=== PATIENT | male | born 1960 | race Caucasian/White ===

== ENCOUNTER → 2021-04-10 | Outpatient (CLI) | payer OTHER ==
[~2021-04-10] MED LIST: ALLEGRA ALLERG180 MG PO; AMANTADINE100 M1 PO; CARBIDOPA-LEVO1 EAC5 PO; CITRATE OF MAG296 ML PO; EMSAM; FLEXERIL PO; MOBIC7.5 MG PO; NABUMETONE 750750 M1 PO; NAPROSYN500 MG PO; NORCO 5-325 TA1 EACH PO; NORCO 7.5-3251 EACH PO; PERCOCET 5-3251 EACH PO; RELAFEN750 MG PO; REQUIP XL12 MG; ZOFRAN ODT4 MG PO; [UNRECOGNIZED DRUG - OTHER]
[2021-04-10 11:40] LABS: ALBUMIN 4.2 g/dL (3.4-5.0); CALCIUM 9.5 mg/dL (8.5-10.1); CREATININE 1.1 mg/dL (0.7-1.3); POTASSIUM 4.6 mmol/L (3.5-5.1)
[2021-04-10 11:44] LABS: HEMATOCRIT 47.7 % (42.0-52.0); HEMOGLOBIN 16.3 gm/dL (14.0-18.0); MCH 30.3 pg (26.0-34.0); MCHC 34.1 g/dL (28.0-37.0); MCV 88.9 fL (80.0-100.0); RBC 5.36 mil/uL (4.50-6.00); RDW 13.3 % (10.5-14.5)
[2021-04-10 11:56] LABS: INR 0.98; PROTIME 10.7 Seconds (10.5-12.1)
[2021-04-10 12:27] LABS: URINE BILIRUBIN NEGATIVE (Negative); URINE BLOOD NEGATIVE (Negative); URINE CLARITY CLEAR; URINE COLOR YELLOW; URINE GLUCOSE-RANDOM* NEGATIVE (Negative); URINE KETONES NEGATIVE (Negative); URINE LEUKOCYTES-REFLEX NEGATIVE (Negative); URINE NITRITE-REFLEX NEGATIVE (Negative); URINE PROTEIN (DIPSTICK) NEGATIVE (Negative); URINE SPECIFIC GRAVITY >= 1.030 (1.005-1.035); URINE UROBILINOGEN 0.2 E.U./dl (0.2-1.0)
== END ==
LOC: PAC 10:36
PROVIDERS: ATTEND Orthopaedic Surgery
DX: Z01.812 Encounter for preprocedural laboratory examination (principal); M17.11 Unilateral primary osteoarthritis, right knee; M22.41 Chondromalacia patellae, right knee; M25.569 Pain in unspecified knee; Z20.822 Contact with and (suspected) exposure to COVID-19

== ENCOUNTER 2021-04-13 06:13 | Day surgery (SDC) | payer OTHER ==
[~2021-04-13] VITALS: Ht 180.3 cm; Wt 111.1 kg
[2021-04-13 07:39] VITALS: BP 149/80
[2021-04-13 12:16] VITALS: BP 160/80
--- NOTE | 2021-04-13 16:23 | NUR ---
ASSUMED PT CARE AT 1220 FROM PACU. PT IS ALERT & ORIENTED X4. PT HAS IV SITE ON R HAND. PT USES URINAL. PT HAS 2L NC O2. PT HAS [employer] THIGH HIGH, HEMOVAC, POLAR PACK, GABY DRESSING AND SCD. PT C/O OF PAIN AND GIVEN PAIN MEDICATION PER PT REQUEST. PT TOLERATED DIET AND MEDICATION WELL. FINISHED ADMISSION. PT AT THE BEDSIDE. WILL CONTINUE TO MONITOR PT. FOLLOW POC.
[2021-04-13 16:39] VITALS: BP 151/96
--- NOTE | 2021-04-13 23:57 | NUR ---
ASSESSMENT COMPLETED. PT IS USING A URINAL-VOIDING ADEQUATELY. RATING PAIN AROUND 4/10-RELIEVED BY NORCO. AGBY AND POLAR SHANNA IN PLACE TO RIGHT KNEE. IN FIRST FOUR HOURS, HEMOVAC HAD ABOUT 5CC OF OUTPUT. GOOD CSM TO RIGHT FOOT. AFEBRILE. ON 02/2L/NC FOR COMFORT. DENIES NAUSEA AND VOMITING. NO OTHER CONCERNS.CALL LIGHT WITHIN REACH.
[2021-04-14 03:47] VITALS: BP 148/84
[2021-04-14 06:00] LABS: HEMATOCRIT 40.2 % (42.0-52.0); HEMOGLOBIN 13.6 gm/dL (14.0-18.0); MCH 30.1 pg (26.0-34.0); MCHC 33.7 g/dL (28.0-37.0); MCV 89.5 fL (80.0-100.0); RBC 4.5 mil/uL (4.50-6.00); RDW 13.2 % (10.5-14.5); WBC 12.6 thou/uL (4.0-11.0)
[2021-04-14 06:15] LABS: CALCIUM 8.4 mg/dL (8.5-10.1); CREATININE 1.1 mg/dL (0.7-1.3)
[2021-04-14 07:42] VITALS: BP 129/80
--- NOTE | 2021-04-14 10:48 | O ---
[facility] [place] [address] OPERATIVE REPORT Name: ANNE-MARIE DESAI Room #: 439-P [facility]..#: [id number] Admission: 04/13/21 Attend Phys: Vishal Key MD Discharge: Date of : 64 Report #: [id number] THIS REPORT FOR: cc: Ayden Smith MD, Logan F. MD Clymer, David J. MD ~ DATE OF SERVICE: 04/13/2021 PREOPERATIVE DIAGNOSIS: Degenerative arthritis, right knee. POSTOPERATIVE DIAGNOSIS: Degenerative arthritis, right knee. PROCEDURE: Right total knee arthroplasty. SURGEON: Vishal Key MD INDICATIONS: This 60-year-old gentleman complains of rather severe progressive chronic right knee pain. His clinical exam and x-rays suggest only moderate degenerative arthritis; however, his symptoms have been severe and unresponsive to time, therapy, exercise, anti-inflammatories, knee injection and previous knee arthroscopy. Given these rather severe ongoing symptoms, he has elected to go ahead with total knee replacement. DESCRIPTION OF PROCEDURE: The patient was taken to the operating room where he was placed under general anesthesia. A femoral nerve block was also applied. The right lower extremity was meticulously prepped and draped. A thigh tourniquet was applied and inflated to 300 mmHg. An anterior longitudinal skin incision was made and carried through the medial retinaculum. The patella was reflected laterally. There was a slightly greater chondromalacia damage in all three compartments. Then, the x-rays might have suggested, but still the extent of the damage was only moderate. Nevertheless given his severe chronic symptoms, I think it is reasonable to proceed with a knee replacement. The Dietz and Nephew knee system was utilized. Intramedullary guides were used on both the femur and the tibia. The femur was cut in 5 degrees of valgus and the tibia cut perpendicular to the long axis of the bone. This was helpful in correcting mild varus malalignment. The femur was best suited for a size 6 femoral component. The tibia was best suited for a size 5 tibial component. A trial reduction was performed and a 9 mm polyethylene insert fit nicely. There was a slight varus position and a limited medial soft tissue release was performed. This seemed to balance the knee nicely and demonstrated full extension and flexion beyond 135 degrees. The patellar surface was resected and a 35 mm patellar button fit nicely with appropriate anchor holes. The trial components were removed. The surfaces were thoroughly irrigated and dried. The intramedullary canal was blocked with bone block on both the femoral and tibial sides. Methyl methacrylate cement was injected into the porous [address] [address] OPERATIVE REPORT Name: ANNE-MARIE DESAI Room #: 439-P [facility] M.R.#: [id number] Admission: 04/13/21 Attend Phys: Vishal Key MD Discharge: Date of : 64 Report #: [id number] surface of the proximal tibia. The Dietz and Nephew size 5 right, tibial baseplate was then applied. This was impacted into position and seated nicely and appeared to be secure. Excess cement was removed around its margin. A 9 mm polyethylene insert was snapped into place. It seated nicely and appeared to be secure. A right size 6 cruciate retaining Legion porous femoral component was impacted on the distal femur. It also seated nicely and appeared to be secure. A 35 mm Giselle II Patellar resurfacing button was applied with appropriate anchor holes and cement. It was secured with a patellar clamp until the cement had hardened. Once the cement was firm, range of motion, alignment and stability were once again assessed and felt to be satisfactory. The patella tracks nicely and appears to be stable. The knee demonstrates full extension and flexion beyond 135 degrees. At this point, the knee was copiously irrigated. A single Hemovac was left in the wound exiting through a separate stab incision. The fascia was closed with multiple interrupted #1 Vicryl sutures. The tourniquet was deflated after a total tourniquet time of 60 minutes. The subcutaneous tissues were closed with 0 Monocryl. The skin was closed with skin lawanda. A sterile dressing was applied. The patient was awakened and returned to recovery room in good condition. <ELECTRONICALLY SIGNED> By: Vishal Key MD 04/14/21 1048 [id number] Vishal Key MD /nt
[2021-04-14 12:59] VITALS: BP 129/80
--- NOTE | 2021-04-14 13:01 | NUR ---
Pt is s/p TKR and anticipating dc home tomorrow. He will need a FWW and one has been issued to him per [facility] for home use. Script given to Vian[facility] their liason. Pt and deny any dc planning needs have made an appt with [facility] near their home. [facility] is getting the script from the ortho office. No other cm interventions indicated at this time.
--- NOTE | 2021-04-14 13:31 | NUR ---
ASSUMED PT CARE THIS AM. PT AT THE BEDSIDE. PHYSICAL THERAPY AND OCCUPATIONAL THERAPY WAS WORKING WITH PT THIS AM. PT IS UP WITH ASSIST X1 WITH GAITBELT AND WALKER. PT HAS BILATERAL [employer] THIGH HIGH, GABY DRESSING, POLAR CARE. NIGHT NURSE REMOVED HEMOVAC THIS AM. PER CM, OUTPATIENT THERAPY HAS ALREADY BEEN SET UP AND WALKER TO TAKE HOME AT THE BEDSIDE. GIVEN PAIN MEDICATION PRIOR WORKING WITH PHYSICAL THERAPY. WILL CONTINUE TO MONITOR PT. FOLLOW POC.
[2021-04-14 17:21] VITALS: BP 154/87
[2021-04-14 19:24] VITALS: BP 154/73
--- NOTE | 2021-04-15 04:44 | NUR ---
ASSUMED CARE AT 1900, PT LAYING COMFORTABLY IN BED, PAIN MEDICATION ADMINISTRED PER REQUEST, PRESENT, CALL LIGHT AND BELONGINGS WITHIN RECH, REPORTS NO NEED AT THIS TIME, USES WALKER FOR AMBULATION, ICE REFILLED WITH ICE, ICED WATER ON THE BED SIDE TABLE. COMPLIANT TO TX, NO ADVERSE REACTION, WILL CONTINUE TO MONITOR.
[2021-04-15 06:15] LABS: HEMATOCRIT 36.6 % (42.0-52.0); HEMOGLOBIN 12.4 gm/dL (14.0-18.0); MCH 30.3 pg (26.0-34.0); MCHC 33.8 g/dL (28.0-37.0); MCV 89.5 fL (80.0-100.0); RBC 4.08 mil/uL (4.50-6.00); RDW 13.1 % (10.5-14.5); WBC 10.3 thou/uL (4.0-11.0)
[2021-04-15 08:27] VITALS: BP 162/87
--- NOTE | 2021-04-15 09:48 | NUR ---
ASSUMED CARE AT 0700. PATIENT IS ALERT AND ORIENTED X4. PATIENT MORRELL'S, DIRECTOR OF SERVICES ARE EQUAL. PATIENT HAS RIGHT KNEE DRESSSING THAT IS DRY AND INTACT. GABY IN PLACE. POLAR ICE MACHINE INTACT. PATIENT HAS S.L. IN KHIS RIGHT HAND. IV SITE WITHOUT REDNESS OR SWELLLING. VOIDS PER URINAL GER COLORED URINE. PATIENT IS UP WITH ASSIST OF 1 STAFF AND GAIT BELT AND WALKER. FALL AND SAFETY PROTOCOLSS IN PLACE. C/O PAIN IN HIS RIGHT KNEE. PATIENT MEDICATED WITH PRN PAIN MED. UP IN THE CHAIR FOR MEALS. CONTINUES TO PROGRESS TOWARDS D/C GOALS. WILL CONTINUE TO MONITER.
[2021-04-15 11:14] VITALS: BP 129/80
[2021-04-15 11:44] VITALS: BP 129/80
[2021-04-15 13:26] VITALS: BP 129/80
--- NOTE | 2021-04-15 14:18 | NUR ---
D/C INSTRUCTIONS GIVEN TO PATIENT AND HIS . SCRIPTS GIVEN TO PATIENT BY DR. GUERRERO. PATIENT AND VERBALIZED UNDERSTANDING OF D/C INSTRUCTIONS. PATIENT LEFT UNIT WITH POLAR PACK, AND WALKER, AND ALL OF HIS BELONGINGS WITH POLAR PACK, AND WALKER AND ALL OF HIS BELONGINGS PER W/C. PATIENT TRANSFERED FROM CHAIR TO W/C WITH MIN ASSIST WITH HIS WALKER. PATIENT D/C'D TO ER ENTRANCE.
--- NOTE | 2021-04-17 07:43 | D ---
[facility] [place] [address] DISCHARGE SUMMARY Name: ANNE-MARIE DESAI Room #: [facility]P [facility]..#: [id number] Admission: 04/13/21 Attend Phys: Vishal Key MD Discharge: 04/15/21 Date of : 64 Report #: [id number] THIS REPORT FOR: cc: Ayden Smith MD, Logan F. MD Clymer, David J. MD ~ DATE OF SERVICE: 04/15/2021 FINAL DIAGNOSES: Degenerative arthritis, right knee, Parkinson's disease, hypertension. OPERATIVE PROCEDURE: Right total knee arthroplasty. HISTORY: This 60-year-old gentleman complains of severe progressive right knee pain. His clinical exam and x-rays reveal rather mild or moderate arthritis, but his symptoms are severe and unresponsive to conservative measures. The patient and have decided to go ahead with total knee replacement. HOSPITAL COURSE: The patient was admitted and taken to the operating room on 04/13. He underwent right total knee arthroplasty, which he tolerated well. Postoperatively, he did have significant output through his Hemovac totaling about 450 mL. However, his hemoglobin remained stable at about 13.5. His discomfort is well managed with oral pain medications. He has been able to start physical therapy and is making some slow progress. He has been able to resume a regular diet. He has no other significant medical problems and seems to be stable. Today, he is not yet ready for discharge and does not seem safe and independent. However, he is anxious for discharge tomorrow and we will plan for discharge on 04/15 with family assistance at home. His discharge medications include carbidopa one tablet five times daily, amantadine 100 mg daily, Mary 180 mg daily, Xarelto 10 mg daily, hydrocodone 5 or 10 mg q. 4 hours as needed for pain. He is instructed to call me if there are any problems or questions. I will plan to see him back in one week for followup and in two weeks for suture removal. <ELECTRONICALLY SIGNED> By: Vishal Key MD 04/17/21 0743 [id number] Vishal Key MD /nt
== END 2021-04-15 14:21 | disposition still patient (30) ==
LOC: 4S 06:13 → OR 06:13 → TBA 06:16 → PRE 10:38 → 4S 12:03 → EDSTATUS 14:20 → OR 15:10
PROVIDERS: ATTEND Orthopaedic Surgery
DX: M17.11 Unilateral primary osteoarthritis, right knee (principal); M25.561 Pain in right knee; K21.9 Gastro-esophageal reflux disease without esophagitis; G20 Parkinson's disease; Z98.890 Other specified postprocedural states; Z79.899 Other long term (current) drug therapy; Z90.49 Acquired absence of other specified parts of digestive tract; Z88.8 Allergy status to other drugs, medicaments and biological substances
CPT/HCPCS: 50010; 50101; 50415; 50954; 51130; 51225; 51320; 51412; 52001; 52282; 56525; 57095; 57103; 57104; 57180; 58449; 62110; 62900; 64041; 70005